=== PATIENT | male | born 1985 | race Caucasian/White ===

== ENCOUNTER 2020-09-19 08:15 | Day surgery (SDC) | payer BC ==
[2020-09-17 09:25] VITALS: BMI 28.3
[~2020-09-19 08:15] MED LIST: DEXAMETHASONE SOD PHOSPHATE 4 MG/ML 1 ML VIAL IV ONE; DEXAMETHASONE SOD PHOSPHATE 4 MG/ML 1 ML VIAL IV PRN; FAMOTIDINE 20 MG/2 ML VIAL IV PRN; HYDROmorphone 0.5 MG/0.5 ML SYRINGE IVP PRN; LACTATED RINGERS 1,000 ML IV SCH; LIDOCAINE 1% (10MG/ML) FOR IV START INTRADERMA PRN; ONDANSETRON 4 MG/2 ML VIAL IVP ONE; ONDANSETRON 4 MG/2 ML VIAL IVP PRN; SCOPOLAMINE 1.5MG/72HR PATCH TRANSDERM ONE
[2020-09-19] MEDS: OXYMETAZOLINE 0.05% NASL SPRAY 1 SPRAY BOTTLE EA NOSTRIL PRN ×5 (09:09→09:29)
[2020-09-19] MEDS ORDERED: MIDAZOLAM 2 MG/2 ML VIAL IVP ONE ×2 (09:24→09:29)
[2020-09-19] MEDS ORDERED: ROCURONIUM 10 MG/ML (5 ML VIAL) IV ONE (09:31)
[2020-09-19] MEDS ORDERED: GLYCOPYRROLATE 0.2 MG/ML 2 ML VIAL ONE (09:31)
[2020-09-19] MEDS ORDERED: fentaNYL (PF) 50 MCG/ML 2 ML AMP ONE (09:31)
[2020-09-19] MEDS ORDERED: NEOSTIGMINE 1 MG/ML 10 ML VIAL ONE (09:31)
[2020-09-19] MEDS ORDERED: MIDAZOLAM 2 MG/2 ML VIAL ONE (09:31)
[2020-09-19] MEDS ORDERED: PROPOFOL 10 MG/ML 20 ML VIAL IV ONE (09:31)
[2020-09-19] MEDS ORDERED: SUCCINYLCHOLINE CHLORIDE 100 MG/5 ML SYR IV ONE (09:31)
[2020-09-19] MEDS ORDERED: LIDOCAINE 1%-EPI 1:100,000 20 ML VIAL SUBMUCOSAL ONE ×2 (09:56)
[2020-09-19] MEDS ORDERED: LACTATED RINGERS 1,000 ML IV ONE (10:25)
--- NOTE | 2020-09-19 10:35 | P.OP ---
Date of Procedure: 09/19/20 Preoperative Diagnosis: Deviated nasal septum Inferior turbinate hypertrophy Left-sided chronic sinusitis Postoperative Diagnosis: Same Procedure(s) Performed: Septoplasty Outfracture and submucous resection of the inferior turbinates left sided endoscopic sinus surgery including left maxillary antrostomy with removal of tissue from the left maxillary sinus left anterior and posterior ethmoidectomy Anesthesia: BRITTON Surgeon: Kolby Carrion Estimated Blood Loss (ml): 10 Pathology: other (Nasal septal bone and cartilage and sinus contents) Condition: stable Disposition: PACU Indications for Procedure: This is a 35-year-old white male whose had difficulties with chronic nasal airway obstruction congestion and drainage. Physical exam shows a deviated septum as well as inferior turbinate hypertrophy had evidence of chronic sinusitis. The computed tomography scan showed left-sided chronic maxillary and ethmoid sinusitis Operative Findings: Nasal septum deviated to the right anteriorly to the left posteriorly and was obstructive and therefore required correction for nasal airway obstruction as well as for access to the left-sided sinuses, inferior turbinate hypertrophy bilateral, obstruction of the left ostiomeatal complex with inflammation of the mucosa of the left maxillary and left-sided ethmoid sinuses-the purulent drainage from the left maxillary sinus was cultured Description of Procedure: The patient was brought in the operative suite and placed in a supine position. The patient underwent induction of general anesthesia with oral endotracheal intubation without difficulty. The patient was prepped and draped in usual aseptic fashion with the orbits in the operating field for monitoring throughout the case computed tomography scan was on the computer screen for review throughout the case. 1% lidocaine with 1 100,000 epinephrine was infused submucosally both sides nasal septum as well as lateral nasal wall on the left. While this taking vasoconstrictive effect the inferior turbinates were in fractured with the Hawi elevator partial submucous resection inferior turbinates performed with Coblation device on coagulation setting thus removing/ablating a portion of the subcu soft tissue and inferior turbinate bone. The inferior turbinates were then outfractured with Hawi elevator. A left hemitransfixion incision was made with the mucoperichondrial and the breast of flap on the left elevated. Bony cartilaginous junction was disarticulated and the mucoperiosteal flap on the right was elevated. Bony nasal septal deviation was removed with Shira forceps. An inferior cartilaginous strip was leaving a full 1.5 cm caudal strut. Checking intranasally this corrected the nasoseptal deformities and the hemitransfixion incision was closed with a running 4-0 chromic suture. Full 0 endoscopic examination is performed bilaterally. Proceeding on the left the middle turbinate was medialized with the Kinde elevator. There was purulence in the middle meatus numbing from the maxillary sinus was cultured. The maxillary ostium was located with a ballpoint probe and infundibulotomy was performed followed by uncinectomy. The maxillary ostium was enlarged at the expense of the anterior and posterior fontanelle taking care anteriorly not to injure the lacrimal bone. There is extensive mucosal thickening and inflammation throughout the maxillary sinus at the ostium was debrided with microdebrider. Anterior and posterior ethmoidectomy was then performed from anterior posterior to the level of the skull base. There was inflammation in the ethmoid sinuses however this was mild to moderate and no purulence was noted. The maxillary sinus was then irrigated with saline. Once this was completed a pledget of standard nasal pore nasal dressing was placed the middle meatus under direct visualization not obstructing the maxillary ostium. Bilateral Coats airway splints coated bacitracin ointment were placed in nasal cavities and sutured transseptal 4-0 nylon suture. The patient then suctioned in oral gastric fashion. The patient allowed to emerge from general anesthesia having tolerated procedure well was extubated in the operating suite and transferred postoperative recovery area in satisfactory condition.
[2020-09-19 10:52] VITALS: TEMP 96.9
[2020-09-19 11:13] VITALS: RESP 16
[2020-09-19] MEDS ORDERED: HYDROcodone/APAP 5-325MG 1 EACH TAB ONE (12:00)
[2020-09-19 12:01] VITALS: BP 146/95; PULSE 92
[2020-09-19] MEDS ORDERED: HYDROcodone/APAP 5-325MG 1 EACH TAB PO ONE (12:01)
== END 2020-09-19 12:32 | disposition home or self-care (01) ==
LOC: OR 08:15
PROVIDERS: ATTEND Otolaryngology
DX: J34.2 Deviated nasal septum (principal); J34.3 Hypertrophy of nasal turbinates; J32.0 Chronic maxillary sinusitis; K21.9 Gastro-esophageal reflux disease without esophagitis; Z79.899 Other long term (current) drug therapy; J32.2 Chronic ethmoidal sinusitis; F32.9 Major depressive disorder, single episode, unspecified
CPT/HCPCS: 88305; 88300; 87070; 87205; 87075; 87102; 30520; 30140; J2250; J1100; J2710; J2405; J0690; J3010; J0330; J2704